=== PATIENT | female | born 1990 | race Caucasian/White ===

== ENCOUNTER 2018-12-01 20:42 | Day surgery (SDC) | payer OTHER ==
[2018-12-01] MEDS ORDERED: hydrALAZINE 20 MG/ML VIAL SLOW IVP PRN (21:11)
[2018-12-01 21:25] VITALS: BMI 27.8
[2018-12-01 21:54] LABS: #Eosinphils 0.1 thou/uL (0.0-0.7); #Lymphocytes 1.7 thou/uL (1.20-3.40); #Monocytes 0.7 thou/uL (0.11-0.59); #Neutrophils 6.4 thou/uL (1.40-6.50); %Basophils 0.3 % (0.0-1.0); %Eosinophils 0.8 % (0.0-10.0); %Lymphocytes 18.8 % (21.0-51.0); %Monocytes 7.8 % (0.0-10.0); %Neutrophils 72.3 % (42.0-75.0); Mean Corpuscular HGB CONC 34.1 g/dL (32.0-36.0); Mean Corpuscular Hemoglobin 31.4 pg (27.0-31.0); Mean Corpuscular Volume 91.9 fL (78.0-98.0); Platelet Count 174 thou/uL (130-400); RBC Distribution Width 12.7 % (11.5-14.5); Red Blood Cell (RBC) Count 3.82 mill/uL (4.20-5.40); White Blood Cell (WBC) Count 8.8 thou/uL (4.8-10.8)
[2018-12-01 22:13] LABS: ALT (SGPT) 11 U/L (8-55); AST (SGOT) 18 U/L (5-34); Albumin 3.2 g/dL (3.5-5.0); Alkaline Phosphatase 135 U/L (40-150); Anion Gap 13 mmol/L (10-20); BUN (Urea Nitrogen) 10 mg/dL (7.0-18.7); Bilirubin, Total 0.2 mg/dL (0.2-1.2); Calc. Creatinine Clearance 142 mL/min (70-130); Calcium 8.7 mg/dL (7.8-10.44); Carbon Dioxide 23 mmol/L (22-29); Chloride 105 mmol/L (98-107); Estimated GFR-MDRD Greater than 90; Globulin 2.9 g/dL (2.4-3.5); Glucose 104 mg/dL (70-105); Potassium 3.7 mmol/L (3.5-5.1); Protein, Total 6.1 g/dL (6.0-8.3); Sodium 137 mmol/L (136-145)
[2018-12-01 22:36] LABS: Bilirubin Negative (Negative); Blood, Urine Negative (Negative); Clarity Clear (Clear); Glucose, Urine (Dipstick) 30 mg/dL (Negative); Leukocyte Negative Leu/uL (Negative); Nitrite Negative (Negative); Protein, Urine (Dipstick) Negative (Neg-Trace); RBC/HPF 0-3 HPF (0-3); Squamous Epithelial 0-3 HPF (0-3); Urobilinogen Normal mg/dL (Less than 2); WBC/HPF 0-3 HPF (0-3)
[2018-12-01 22:50] LABS: Bacteria/HPF None Seen HPF (None Seen)
[2018-12-01 23:09] LABS: Creatinine, Urine 74.22 mg/dL (47-110); Protein, Urine Random Quant Less than 10 mg/dL (1-14)
--- NOTE | 2018-12-02 06:10 | SS ---
DATE OF ADMISSION: 12/01/2018 DATE OF DISCHARGE: 12/01/2018 REGULAR PHYSICIAN: Anup Hoff MD EVALUATING PHYSICIAN: Cesar Sheridan MD CHIEF COMPLAINT: Intermittent headache with swelling. HISTORY OF PRESENT ILLNESS: Ms. Yoo is a 28-year-old white G2, P1, with an estimated date of confinement of 01/02/2019, who presents complaining of 1-week history of intermittent headache, swelling of her lower extremities, and tingling of her arms and legs. She denies decreased movement. Her care has been with Dr. Hoff and has been reportedly uncomplicated. PAST OBSTETRICAL HISTORY: Includes one uncomplicated vaginal delivery at 38 weeks. PAST MEDICAL HISTORY: Unremarkable. PAST SURGICAL HISTORY: Unremarkable. CURRENT MEDICATIONS: 1. vitamins. 2. Prozac. ALLERGIES: NO KNOWN ALLERGIES. SOCIAL HISTORY: Denies tobacco, alcohol, or drug use. FAMILY HISTORY: Unremarkable. REVIEW OF SYSTEMS: Denies nausea, vomiting, fever, chills, ruptured membranes, vaginal bleeding. PHYSICAL EXAMINATION: VITAL SIGNS: Blood pressures are 130/84 and 129/84. GENERAL: She is pleasant. She is in no acute distress. ABDOMEN: Soft, nontender, and gravid. heart rate tracing is stable. No uterine contractions are seen. EXTREMITIES: Show trace edema. LABORATORY DATA: White count 8.8, hemoglobin and hematocrit 12 and 35.1, and platelet count 174,000. Chemistry: Creatinine 0.65, total bilirubin 0.2, AST and ALT are 18 and 11 respectively. Alkaline phosphatase 135. Urinalysis shows a specific gravity of 1.016 with negative protein, negative ketones, negative blood, negative nitrites. Bhgjyzz-ca-vyzdfndwkw ratios unobtainable due to low protein content. ASSESSMENT: 1. 35-week intrauterine . 2. No evidence of preeclampsia. PLAN: The patient will be dismissed to home with precautions. Dr. Hoff was notified. Job ID: [id number]
== END 2018-12-01 23:58 | disposition home or self-care (01) ==
LOC: L&D/OP 20:42
PROVIDERS: ATTEND Obstetrics & Gynecology
DX: O99.89 Other specified diseases and conditions complicating pregnancy, childbirth and the puerperium (principal); R51 Headache; M79.89 Other specified soft tissue disorders; Z3A.35 35 weeks gestation of pregnancy; Z79.899 Other long term (current) drug therapy
CPT/HCPCS: 36415; 80053; 81003; 82570; 84156; 85025; 99283

== ENCOUNTER 2018-12-20 11:07 | Inpatient (IN) | payer OTHER ==
[~2018-12-20 11:07] MED LIST: Bupivacaine 0.25% HCL 30 ML VIAL ONE; Bupivacaine HCl 0.5%/Epinephrine 1:200,000/PF 30 ml Vial ONE
[2018-12-20] MEDS ORDERED: hydrALAZINE 20 MG/ML VIAL SLOW IVP PRN (11:42)
[2018-12-20] MEDS ORDERED: Butorphanol Tartrate 1 MG/ML VIAL SLOW IVP PRN (11:42)
[2018-12-20] MEDS ORDERED: Promethazine HCl 25 MG/ML VIAL IM PRN (11:42)
[2018-12-20] MEDS ORDERED: Acetaminophen 500 MG TAB PO PRN (11:42)
[2018-12-20] MEDS ORDERED: Lidocaine 1% (PF) 30 ML VIAL SC PRN (11:42)
[2018-12-20] MEDS ORDERED: Misoprostol 200 MCG TAB PR PRN (11:42)
[2018-12-20] MEDS ORDERED: NS / Oxytocin 40 units/1000ml 1,000 ML IV PRN (11:42)
[2018-12-20] MEDS ORDERED: Carboprost 250 MCG/ML AMP IM PRN (11:42)
[2018-12-20] MEDS ORDERED: Ondansetron PF 4 MG/2 ML Vial IVP PRN (11:42)
[2018-12-20] MEDS ORDERED: HYDROcodone/Acetaminophen 5/325 mg Tablet PO PRN ×2 (11:42)
[2018-12-20] MEDS ORDERED: Ibuprofen 800 MG TAB PO PRN (11:42)
[2018-12-20] MEDS ORDERED: Zolpidem Tartrate 5 MG TAB PO PRN (11:42)
[2018-12-20] MEDS ORDERED: Diphenoxylate HCl/Atropine Tablet PO PRN ×2 (11:42)
[2018-12-20] MEDS ORDERED: NS w/ Oxytocin 10 units 500 ML IV SCH ×2 (11:45)
--- NOTE | 2018-12-20 11:48 | PDOC.LDHP ---
Labor and Delivery H&P HPI: 28 y/o at 38 and 1/7 weeks presents for medical induction of labor. 07/05 BPP today, with highest clinic BP of 153/93. Pt also reporting decreased movement at home. Current gestational age (weeks): 38 Due date: 01/02/19 Grav: 5 Para: 1 Current complications: gestational hypertension Abnormal US findings: Yes (07/05 BPP) Current medications: pre-sarah vitamins Previous surgical history: none Allergies/Adverse Reactions: Allergies Allergy/AdvReac Type Severity Reaction Status Date / Time No Known Allergies Allergy Verified 12/01/18 21:19 Social history: none - Physical Exam Vital signs reviewed and normal: yes General: NAD, resting, breathing through contractions Heart: RRR Lungs: CTAB Abdomen: gravid Extremeties: no edema FHT: category 1 - Assessment L&D Assessment: medically indicated induction - Plan Plan: admit to L&D, cervical ripening
[2018-12-20 12:13] LABS: Hemoglobin 11.9 g/dL (12.0-16.0); Mean Corpuscular HGB CONC 34.3 g/dL (32.0-36.0); Mean Corpuscular Hemoglobin 30.8 pg (27.0-31.0); Mean Platelet Volume 10.7 fL (7.4-10.4); Platelet Count 166 thou/uL (130-400); RBC Distribution Width 12.9 % (11.5-14.5); Red Blood Cell (RBC) Count 3.85 mill/uL (4.20-5.40); White Blood Cell (WBC) Count 8.5 thou/uL (4.8-10.8)
[2018-12-20 12:53] LABS: HBSAg Index 0.15 S/CO (0-0.99); Hep B Surf Ag Non-Reactive S/CO (NonReactive); Syphilis Antibody Nonreactive (Nonreactive); Syphilis Antibody Index 0.03 S/CO (<1.00 Non-Reactive)
[2018-12-20] MEDS: Misoprostol 100 MCG TAB VAG SCH ×3 (13:11→21:08)
[2018-12-20] MEDS: Lactated Ringer's 1,000 ML IV SCH ×2 (13:11→18:50)
[2018-12-20 14:26] VITALS: BMI 29.5
[2018-12-21] MEDS: Misoprostol 100 MCG TAB VAG SCH ×3 (01:21→05:55)
[2018-12-21] MEDS ORDERED: Fentanyl 4 mcg/Bup 0.1% Cadd 100 ML ONE (02:18)
[2018-12-21] MEDS ORDERED: Lidocaine 1% PF 5 ML VIAL ONE (02:55)
[2018-12-21] MEDS: Lactated Ringer's 1,000 ML IV SCH (02:57)
[2018-12-21] MEDS ORDERED: Acetaminophen 325 MG TAB PO PRN (03:21)
[2018-12-21] MEDS ORDERED: ePHEDrine/0.9% NaCl/PF SYRINGE 50 mg/10 ml SLOW IVP PRN (03:21)
[2018-12-21] MEDS ORDERED: Naloxone HCl 0.4 mg/ml Vial IVP PRN ×2 (03:21)
[2018-12-21] MEDS ORDERED: Promethazine HCl 25 MG/ML VIAL IM PRN ×2 (03:21→09:11)
[2018-12-21] MEDS ORDERED: Lactated Ringer's 500 ML IV PRN (03:21)
[2018-12-21] MEDS ORDERED: Ondansetron PF 4 MG/2 ML Vial IVP PRN ×2 (03:21→09:11)
[2018-12-21] MEDS ORDERED: diphenhydrAMINE 50 MG/ML VIAL IVP PRN (03:21)
[2018-12-21] MEDS ORDERED: Communication Order-Pharmacy FS SCH (03:30)
[2018-12-21] MEDS ORDERED: Fentanyl 4 mcg/Bupivacaine 0.1% Cassette 100 ML EPIDURAL SCH (03:30)
[2018-12-21] MEDS ORDERED: Adacel (T-DAP) 0.5 ML SYRINGE IM ONE (09:11)
[2018-12-21] MEDS ORDERED: NS / Oxytocin 40 units/1000ml 1,000 ML IV SCH (09:11)
[2018-12-21] MEDS ORDERED: Varicella virus, LIVE 0.5 ML VIAL SC ONE (09:11)
[2018-12-21] MEDS ORDERED: Measles/Mumps/Rubella 10 MCG/0.5 ML VIAL SC ONE (09:11)
[2018-12-21] MEDS ORDERED: Bisacodyl 10 MG SUPP PR PRN (09:11)
[2018-12-21] MEDS ORDERED: Preparation H Ointment 28 GM TUBE PR PRN (09:11)
[2018-12-21] MEDS ORDERED: hydrALAZINE 20 MG/ML VIAL SLOW IVP PRN (09:11)
[2018-12-21] MEDS ORDERED: Benzocaine-Menthol 82.5 ML CAN TOP PRN (09:11)
[2018-12-21] MEDS ORDERED: Milk Of Magnesia 30 ML UDCUP PO PRN (09:11)
[2018-12-21] MEDS ORDERED: Zolpidem Tartrate 5 MG TAB PO PRN (09:11)
[2018-12-21] MEDS ORDERED: Misoprostol 200 MCG TAB VAG PRN (09:11)
[2018-12-21] MEDS ORDERED: Lanolin Ointment 7 GM TUBE TOP PRN (09:11)
[2018-12-21] MEDS ORDERED: diphenhydrAMINE 25 MG CAP PO PRN (09:11)
[2018-12-21] MEDS ORDERED: Prenatal Vitamin 1 TAB PO SCH (10:30)
[2018-12-21] MEDS ORDERED: Docusate Calcium (SURFAK) 240 MG CAP PO SCH (10:30)
[2018-12-21] MEDS: HYDROcodone/Acetaminophen 5/325 mg Tablet PO PRN ×3 (13:49→22:23)
[2018-12-21] MEDS: Ibuprofen 800 MG TAB PO SCH ×2 (17:35→18:10)
[2018-12-21] MEDS: Ferrous Sulfate 325 MG TAB PO SCH (17:35)
[2018-12-21] MEDS: Docusate Calcium (SURFAK) 240 MG CAP PO SCH (22:23)
[2018-12-22] MEDS: Ibuprofen 800 MG TAB PO SCH ×4 (00:20→21:10)
[2018-12-22] MEDS: HYDROcodone/Acetaminophen 5/325 mg Tablet PO PRN ×5 (03:05→23:02)
[2018-12-22 06:09] LABS: Hemoglobin 11.1 g/dL (12.0-16.0); Mean Corpuscular HGB CONC 33.5 g/dL (32.0-36.0); Mean Corpuscular Hemoglobin 31.4 pg (27.0-31.0); Mean Corpuscular Volume 93.6 fL (78.0-98.0); Mean Platelet Volume 10.3 fL (7.4-10.4); Platelet Count 123 thou/uL (130-400); RBC Distribution Width 13.3 % (11.5-14.5); Red Blood Cell (RBC) Count 3.54 mill/uL (4.20-5.40); White Blood Cell (WBC) Count 8.5 thou/uL (4.8-10.8)
[2018-12-22] MEDS: Prenatal Vitamin 1 TAB PO SCH (08:28)
[2018-12-22] MEDS: Docusate Calcium (SURFAK) 240 MG CAP PO SCH ×2 (08:30→21:11)
[2018-12-22] MEDS: Ferrous Sulfate 325 MG TAB PO SCH ×2 (08:59→16:09)
[2018-12-22] MEDS: Misoprostol 100 MCG TAB VAG SCH (09:00)
--- NOTE | 2018-12-22 23:19 | DN ---
DATE OF PROCEDURE: 12/21/2018 TIME OF SERVICE: At 0748 hours, [place] Daylight Savings Time. PREOPERATIVE DIAGNOSIS: Intrauterine at 38 weeks and 2 days with a diagnosis of gestational hypertension and 4/8 biophysical profile in clinic. POSTOPERATIVE DIAGNOSIS: Intrauterine at 38 weeks and 2 days with a diagnosis of gestational hypertension and 4/8 biophysical profile in clinic. PROCEDURE PERFORMED: Spontaneous vaginal delivery over intact perineum. FINDINGS: Viable male infant weighing 2922 g which is 6 pounds 7 ounces, Apgars of 8 and 9. QUANTITATIVE BLOOD LOSS: 150 mL. COMPLICATIONS: None. PROCEDURE IN DETAIL: The patient presented to [facility] where she was admitted to the labor and delivery service. The patient underwent a normal and uneventful labor with normal cervical dilatation until she was found to be completely dilated. She was then allowed to push and was able to bring the baby down and delivered the baby in a vertex presentation without difficulties. Once the head delivered in occiput anterior position, the shoulders followed spontaneously along with the rest of the baby's body. Once out the baby's mouth and nose were bulb suctioned. The cord was clamped and cut and baby was handed to waiting attendants. Cord blood was collected. Gentle fundal massage was performed and the placenta delivered intact without problems. Hemostasis was assured. Quantitative blood loss was calculated. Inspection of the cervix, vaginal vault, and perineum did not reveal any lacerations needing suturing. Once again, hemostasis was within normal limits and the patient was allowed to recover in the labor and delivery room. Baby went to nursery. Job ID: [id number]
[2018-12-23] MEDS: HYDROcodone/Acetaminophen 5/325 mg Tablet PO PRN ×5 (03:57→20:37)
[2018-12-23] MEDS: Ibuprofen 800 MG TAB PO SCH ×2 (04:01→12:20)
[2018-12-23] MEDS ORDERED: Sodium Chloride 0.9% 0 ML ONE (04:36)
[2018-12-23] MEDS: Docusate Calcium (SURFAK) 240 MG CAP PO SCH (08:16)
[2018-12-23] MEDS: Prenatal Vitamin 1 TAB PO SCH (08:16)
[2018-12-23] MEDS: Ferrous Sulfate 325 MG TAB PO SCH ×2 (08:17→12:51)
[2018-12-23 11:06] VITALS: BP 138/82; TEMP 98.9
== END 2018-12-23 21:05 | disposition home or self-care (01) | DRG 807 ==
LOC: L&D/OP 11:07 → L&D 12:48 → 3SW 12-21 16:15
PROVIDERS: ADMIT Obstetrics & Gynecology; ATTEND Obstetrics & Gynecology
PROC: 10E0XZZ Delivery of Products of Conception, External Approach (ICD-10-PCS; principal; 2018-12-20)
PROC: 3E033VJ Introduction of Other Hormone into Peripheral Vein, Percutaneous Approach (ICD-10-PCS; 2018-12-20)
DX: O13.4 Gestational [pregnancy-induced] hypertension without significant proteinuria, complicating childbirth (principal); Z37.0 Single live birth; O36.8130 Decreased fetal movements, third trimester, not applicable or unspecified; Z3A.38 38 weeks gestation of pregnancy
CPT/HCPCS: 36415; 51702; 85027; 86780; 86850; 86900; 86901; 87340; J0360; J0670; J2001; J2405; S0020